=== PATIENT | male | born 1935 | race Two or more races ===

== ENCOUNTER 2017-05-16 08:36 | Outpatient (CLI) | payer OTHER | END 2017-05-16 08:45 | disposition home or self-care (01) | LOC: LAB 08:36 | DX: I10 Essential (primary) hypertension (principal); E78.2 Mixed hyperlipidemia; E11.9 Type 2 diabetes mellitus without complications ==

== ENCOUNTER 2017-06-09 15:24 | Emergency (ER) | payer OTHER ==
[~2017-06-09] VITALS: Ht 172.7 cm; Wt 79.4 kg
[2017-06-09] MEDS ORDERED: AVALIDE 300-121 EACH (15:52)
[2017-06-09] MEDS ORDERED: SYMBICORT 80/10.2 GM IH (19:34)
[2017-06-09] MEDS ORDERED: MEDROLPACK PO (19:34)
[2017-06-09] MEDS ORDERED: MUCINEX DM ER1 EAC1 PO (19:34)
[2017-06-09] MEDS ORDERED: LEVAQUIN750 MG PO (19:34)
== END 2017-06-09 20:06 | disposition home or self-care (01) ==
LOC: ER 15:24
DX: J18.9 Pneumonia, unspecified organism (principal); J32.8 Other chronic sinusitis; J06.9 Acute upper respiratory infection, unspecified